=== PATIENT | female | born 1965 | race Caucasian/White ===

== ENCOUNTER 2022-04-07 18:56 | Emergency (ER) | payer OTHER, MEDICARE, SELFPAY ==
[2022-04-07] VITALS (12 sets, daily range): BP systolic 101–130; BP diastolic 68–87; PULSE 53–75; RESP 12–19; TEMP 37; O2SAT 98–100
--- NOTE | ~2022-04-07 | CT_ITS ---
EXAMINATION: CT brain wo con DATE: 04/07/2022 21:21 INDICATION: AMS . TECHNIQUE: Computed tomography (CT) of the head was performed without intravenous contrast. The mA wa s adjusted according to patient size. Iterative reconstruction technique was employed. The dose-lengt h product was 605.33 mGy-cm. COMPARISON: None FINDINGS: No acute intracranial hemorrhage or extra-axial fluid collection. No hydrocephalus, mass, or herniation. No acute ischemic infarct. Unremarkable dural venous sinus attenuation. No acute osseous abnormality. Mild mucosal thickening in the left frontal and posterior ethmoid air cells, the remaining aerated sp aces are clear. Small focal old left cerebellar infarct. Moderate atrophy and chronic white matter change. Atheroscle rotic intracranial calcification. IMPRESSION: No acute intracranial process. Reviewed, dictated and finalized at location [facility]. [employer]
--- NOTE | ~2022-04-07 | XR_ITS ---
EXAMINATION: XR chest 1V portable Exam Date/Time: 04/07/2022 19:45 [employer] HISTORY: neuro Comparison: None available. RESULT: Lines, tubes, and devices: None. Lungs and pleura: Clear. Left hemidiaphragm elevation. Cardiomediastinal silhouette: Unremarkable. Other: No acute osseous or upper abdominal finding. IMPRESSION: No acute cardiopulmonary process. Reviewed, dictated and finalized at location [facility]. [employer]
--- NOTE | 2022-04-07 19:14 | ECG_ITS ---
Measurements Intervals [place] Rate: 69 P: 41 NV: 184 QRS: 30 QRSD: 91 T: 32 QT: 368 QTc: 396 Interpretive Statements SINUS RHYTHM ST ELEVATION IN DIFFUSE LEADS- CONSIDER PERICARDITIS, EARLY REPOLARIZATION ABNORMALITY BASELINE ARTIFACT- I, II, AVR, AVL ABNORMAL ECG NO PREVIOUS ECG AVAILABLE FOR COMPARISON Electronically Signed On 04-07-2022 19:51:52 [employer] by Azeem Manzo D.O.
[2022-04-07 19:18] LABS: Glucose Point of Care 111 mg/dl (65-105)
[2022-04-07 19:38] LABS: Basophils Percent Auto 0.4 % (0.2-1.2); Eosinophils Absolute Auto 0.2 K/mm3 (0-0.3); Eosinophils Percent Auto 1.8 % (0-4.4); Hematocrit 36.3 % (37.0-47.0); Hemoglobin 12.1 g/dL (12.0-15.0); Lymphocytes Absolute Auto 1.49 K/mm3 (0.9-3.2); Lymphocytes Percent Auto 14.2 % (18.3-44.2); Mean Corpuscular HGB Conc 33.3 g/dl (32-36); Mean Corpuscular Hemoglobin 32.6 pg (26-34); Mean Corpuscular Volume 97.8 fl (80-100); Mean Platelet Volume 10.1 fl (7.4-10.4); Monocytes Absolute Auto 0.9 K/mm3 (0.1-0.6); Monocytes Percent Auto 8.1 % (2.6-8.5); Neutrophils Absolute Auto 7.8 K/mm3 (1.3-6.7); Neutrophils Percent Auto 74.5 % (45.5-73.1); Platelet Count Result 269 k/mm3 (150-375); Red Blood Count 3.71 M/mm3 (4.2-5.4); White Blood Count 10.5 K/mm3 (4.5-10.0)
[2022-04-07 19:52] LABS: INR 1.1; Prothrombin Time 13.6 Seconds (11.1-14.7)
[2022-04-07 19:53] LABS: Alanine Aminotransferase 76 U/L (6-35); Albumin Level 3.3 g/dL (3.5-5.1); Alkaline Phosphatase 69 U/L (38-126); Anion Gap 6 mmol/L (8-16); Aspartate Amino Transferase 36 U/L (14-36); Bilirubin,Total 0.4 mg/dL (0.2-1.3); Blood Urea Nitrogen 25 mg/dL (7-17); Calcium 9.1 mg/dL (8.4-10.2); Carbon Dioxide 28 mmol/L (22-30); Chloride 96 mmol/L (98-107); Estimated Glomerular Filt Rate > 60; Glucose 124 mg/dL (65-110); Partial Thromboplastin Time 25.8 SECONDS (22.3-36.8); Potassium 3.9 mmol/L (3.4-5.0); Sodium 130 mmol/L (137-145)
[2022-04-07 20:04] LABS: Troponin I < 0.012 ng/mL (0.000-0.034)
--- NOTE | 2022-04-07 21:00 | ED.GENADULT ---
HPI - General Adult General Chief complaint: Neuro Symptoms/Deficit Stated complaint: SLURRED SPEECH PER FAMILY Time Seen by Provider: 04/07/22 20:45 History of Present Illness HPI narrative: This is a 49-year-old female with history of TBI and previous CVA presenting ED for evaluation. Patient herself has no complaints although she appears to be a poor historian. Patient's daughter thought that she had slurred speech that was noticed at 2:00 p.m. today. There is no known last known normal. Review of recent lab work shows that she had a urinary tract infection on April 04. Reviewing her documents I do not see any antibiotics on board. Related Data Allergies Allergy/AdvReac Type Severity Reaction Status Date / Time gabapentin Allergy Unknown Verified 04/03/22 21:08 Review of Systems Review of Systems: CONSTITUTIONAL: Denies night sweats. EYES: No eye pain ENT: Denies rhinorrhea CARDIOVASCULAR: Denies palpitations RESPIRATORY: Denies hemoptysis GASTROINTESTINAL: Denies hematemesis GENITOURINARY: Denies hematuria. SKIN: Denies rash MUSCULOSKELETAL: Denies myalgia. NEUROLOGIC: Denies weakness. PSYCHIATRIC: Denies delusions [facility] Past Medical History Medical History (Updated 04/07/22 @ 23:05 by Marshal Wei MD) Debility History of traumatic brain injury Social History Social History Smoking status: Never smoker Exam Narrative: APPEARANCE: Patient is a chronically ill-appearing 57-year-old female, patient speaks slowly, she is a poor historian Head: atraumatic. EYES: EOMI, GREG NOSE: Atraumatic NECK: Trachea midline RESPIRATORY: No increased rate of breathing, clear to auscultation CARDIOVASCULAR: RRR, ABDOMINAL: Non-distended soft, nontender MUSCULOSKELETAl: No obvious deformities NEURO: Alert. Cranial nerves 2-12 grossly intact. Sensation light touch, motor function intact and 44 extremities. Patient has ataxia of the left hand on finger to nose. Gait exam was deferred SKIN:: Warm, dry. Normal color PSYCHIATRIC: delayed speech Course Vital Signs Vital signs: Vital Signs Temperature 98.6 F 04/07/22 19:11 Pulse Rate 72 04/07/22 19:11 Respiratory Rate 12 04/07/22 19:11 Blood Pressure 101/68 04/07/22 19:11 Pulse Oximetry 100 04/07/22 19:11 Oxygen Delivery Room Air 04/07/22 19:11 Temperature 98.6 F 04/07/22 19:11 Pulse Rate 65 04/07/22 21:44 Respiratory Rate 15 04/07/22 21:44 Blood Pressure 120/80 04/07/22 21:01 Pulse Oximetry 99 04/07/22 21:45 Oxygen Delivery Room Air 04/07/22 19:11 Medical Decision Making [facility] Narrative Medical decision making narrative: This is a 57-year-old female presenting ED for possible slurred speech and increased lethargy. Patient's neurologic exam show some ataxia on the left hand but no other focal findings. Patient has a history of CVA and TBI. review of the patient's record showed greater than 75 white blood cells per high-power field on urinalysis from 3 days ago. Reviewing the rehab paperwork there is no antibiotics on board. More likely her altered mentation is due to urinary tract infection than to CVA. patient has mildly elevated white blood cell count 10.5. She has slight dehydration with the sodium and chloride at 130/96. Urinalysis had greater than 75 white blood cells and +3 leuk esterase. Patient will be started on ceftriaxone. CT head showed no acute intracranial process. Chest x-ray was unremarkable. EKG interpretation: Rhythm [sinus], Rate 69, [place] -[normal], [place] -[normal], QRS [narrow], QTC [normal], T waves -[negative for concerning inversions], ST Segments - [Negative for concerning elevations] Final interpretations: [Normal Sinus Rhythm] patient would like to go back to rehab and does not want to be admitted. We called the rehab center and they are capable of giving IV antibiotics. Patient will be discharged with a course of c
--- NOTE | 2022-04-07 22:04 | PC.NURSE ---
pt adamantly refuses [facility]
[2022-04-07 22:23] LABS: Appearance Urine Turbid (Clear); Bilirubin Urine Negative (Negative); Blood Urine 1+ (Negative); Glucose Urine UA Negative (Negative); Ketones Urine Negative (Negative); Leukocyte Esterase Ur 3+ LEU/UL (Negative); Nitrate Urine Negative (Negative); Protein Urine Negative (Negative); Urobilinogen Urine 0.2 mg/dL (<2.0)
[2022-04-07 22:35] LABS: Bacteria Urine 1+ /hpf; Budding Yeast Urine Present /hpf; Mucus Urine Rare /lpf; RBC Urine 21-50 /hpf (0-2); Squamous Epithelial Cell Urine Rare /hpf (Few); WBC Urine >75 /hpf
[2022-04-07 22:45] LABS: Add Urine Microscopic? YES; Color Urine Light Yellow (Yellow)
--- NOTE | 2022-04-07 23:45 | PC.NURSE ---
Report called to [facility]. EMS cannot transport until [id number]
[2022-04-08] VITALS: BP 110/66; PULSE 56; RESP 16; TEMP 36.3; O2SAT 100
[2022-04-08 01:01] VITALS: BP 112/64; PULSE 56; RESP 16; TEMP 36.7; O2SAT 100
[2022-04-08 02:00] VITALS: BP 116/60; PULSE 58; RESP 16; TEMP 36.8; O2SAT 98
== END 2022-04-08 02:45 ==
PROVIDERS: Emergency Medicine; Emergency Provider Emergency Medicine; PCP Family Medicine
DX: N39.0 Urinary tract infection, site not specified (principal); R53.81 Other malaise; Z87.820 Personal history of traumatic brain injury; Z86.73 Personal history of transient ischemic attack (TIA), and cerebral infarction without residual deficits; R94.31 Abnormal electrocardiogram [ECG] [EKG]
CPT/HCPCS: 36415; 51701; 70450; 71045; 80053; 81001; 82948; 84484; 85025; 85610; 85730; 87077; 87086; 87186; 93005; 96365; 99284; J0696